=== PATIENT | male | born 1955 | race Caucasian/White ===

== ENCOUNTER 2024-10-15 22:23 | Emergency (ER) | payer MEDICARE ==
[~2024-10-15] VITALS: Ht 175.3 cm; Wt 122.5 kg
[2024-10-15] MEDS ORDERED: Morphine 4mg INJECTION 4 MG/ML INJ IV STA (23:00)
[2024-10-15 23:51] LABS: BASOPHILS # (AUTO) 0.1 (0.0-0.1); BASOPHILS % 0.7 % (0.0-1.0); EOSINOPHILS # (AUTO) 0.2 (0.0-0.4); EOSINOPHILS % 2.5 % (0.0-6.0); HEMATOCRIT 33.3 % (38.2-49.6); HEMOGLOBIN 10.1 g/dL (14.0-18.0); LYMPHOCYTES # (AUTO) 2.4 (1.0-3.2); LYMPHOCYTES % 25.2 % (18.0-39.1); MEAN CORPUSCULAR HEMOGLOBIN 23.3 pg (28-32); MEAN CORPUSCULAR HGB CONC 30.3 g/dL (31-35); MEAN CORPUSCULAR VOLUME 76.7 fL (81-99); MONOCYTES # (AUTO) 0.7 (0.2-0.8); NEUTROPHILS # (AUTO) 6.1 (2.1-6.9); NEUTROPHILS % 64.4 % (38.7-80.0); PLATELET COUNT 424 x10e3/uL (140-360); RED BLOOD COUNT 4.34 x10e6/uL (4.3-5.7); RED CELL DISTRIBUTION WIDTH 17.5 % (11.7-14.4); WHITE BLOOD COUNT 9.44 x10e3/uL (4.8-10.8)
[2024-10-16 00:05] LABS: ALANINE AMINOTRANSFERASE 38 IU/L (0-55); ALBUMIN/GLOBULIN RATIO 1.2 (0.8-2.0); ALKALINE PHOSPHATASE 80 IU/L (40-150); ANION GAP 20.1 mmol/L (8-16); BILIRUBIN,TOTAL 0.5 mg/dL (0.2-1.2); BLOOD UREA NITROGEN 39 mg/dL (7-26); BUN/CREATININE RATIO 25 (6-25); CALCIUM 9.8 mg/dL (8.4-10.2); CARBON DIOXIDE 20 mmol/L (22-29); CHLORIDE 106 mmol/L (98-107); CREATINE KINASE 132 IU/L (30-200); CREATININE, SERUM 1.54 mg/dL (0.72-1.25); EST GLOMERULAR FILTRATION RATE 48 ML/MIN (>=60); GLUCOSE 83 mg/dL (74-118); LIPASE 41 U/L (8-78); POTASSIUM 3.1 mmol/L (3.5-5.1); SODIUM 143 mmol/L (136-145); TOTAL PROTEIN 7.3 g/dL (6.5-8.1)
[2024-10-16] MEDS ORDERED: IOPAMIDOL 370 MG/ML 100 ML INFUS..BTL INJ ONE (00:12)
[2024-10-16 00:13] LABS: TROPONIN I < 0.05 ng/mL (0.0-0.40)
[2024-10-16 00:17] LABS: CLARITY,URINE CLEAR (CLEAR); COLOR,URINE YELLOW (YELLOW)
[2024-10-16 00:18] LABS: BILIRUBIN,URINE NEGATIVE (NEGATIVE); GLUCOSE, URINE NEGATIVE (NEGATIVE); KETONES,URINE NEGATIVE (NEGATIVE); LEUKOCYTE ESTERASE ,URINE NEGATIVE (NEGATIVE); NITRITE,URINE NEGATIVE (NEGATIVE); PH,URINE 5.5 (5 - 7); PROTEIN,URINE DIPSTICK NEGATIVE (NEGATIVE); URINE UROBILINOGEN 0.2 mg/dL (0.2 - 1)
[2024-10-16 00:45] LABS: EPITHELIAL CELLS,URINE FEW /LPF
[2024-10-16 00:47] LABS: BACTERIA,URINE MANY /HPF
[2024-10-16] MEDS: ONDANSETRON HCL INJ 2MG/ML 2ML 2 MG/ML VIAL IV STA (01:47)
[2024-10-16] MEDS: SODIUM CHLORIDE 0.9% 1000ML 1,000 ML IV STA (01:47)
[2024-10-16] MEDS ORDERED: FLOMAX0.4 MG PO (02:08)
[2024-10-16 02:50] VITALS: PULSE 71; RESP 16; TEMP 98.6
[2024-10-16 02:58] VITALS: BP 128/65; PULSE 73; RESP 18; TEMP 98.3; O2SAT 98
== END 2024-10-16 02:50 | disposition home or self-care (01) ==
LOC: ER 22:40
DX: R39.15 Urgency of urination (principal); R10.13 Epigastric pain; N28.9 Disorder of kidney and ureter, unspecified; I10 Essential (primary) hypertension; E11.9 Type 2 diabetes mellitus without complications; E78.5 Hyperlipidemia, unspecified; Z86.73 Personal history of transient ischemic attack (TIA), and cerebral infarction without residual deficits; Z87.442 Personal history of urinary calculi; Z96.652 Presence of left artificial knee joint
CPT/HCPCS: 36415; 74177; 80053; 81001; 82550; 83690; 84484; 85025; 87086; 99284; J2405; J7030; Q9967

== ENCOUNTER 2025-02-28 23:25 | Emergency (ER) | payer MEDICARE, OTHER ==
[~2025-02-28] VITALS: Ht 175.3 cm; Wt 124.7 kg
[~2025-02-28 23:25] MED LIST: FLOMAX0.4 MG PO
[2025-02-28 23:50] VITALS: TEMP 98.5
[2025-03-01 00:36] LABS: BASOPHILS % 1.2 % (0.0-1.0); EOSINOPHILS % 3.5 % (0.0-6.0); LYMPHOCYTES % 27.4 % (18.0-39.1); MONOCYTES % 6.9 % (4.4-11.3); NEUTROPHILS % 60.7 % (38.7-80.0); RED CELL DISTRIBUTION WIDTH 18.4 % (11.7-14.4)
[2025-03-01 00:50] LABS: EST GLOMERULAR FILTRATION RATE 57.0 ML/MIN (>=60)
[2025-03-01 01:00] VITALS: PULSE 79; RESP 20; O2SAT 99
[2025-03-01 01:37] VITALS: BP 142/74; PULSE 80; RESP 20
[2025-03-01 04:55] LABS: PLATELET ESTIMATE ADEQUATE; PLATELET MORPHOLOGY COMMENT NORMAL; RBC MORPHOLOGY COMMENT ABNORMAL
== END 2025-03-01 01:20 | disposition home or self-care (01) ==
LOC: ER 03-01 00:23
DX: D50.9 Iron deficiency anemia, unspecified (principal); I10 Essential (primary) hypertension; E11.65 Type 2 diabetes mellitus with hyperglycemia; E78.5 Hyperlipidemia, unspecified; Z86.73 Personal history of transient ischemic attack (TIA), and cerebral infarction without residual deficits; Z87.442 Personal history of urinary calculi
CPT/HCPCS: 36415; 80053; 85025; 99284